=== PATIENT | female | born 1980 | race Caucasian/White ===

== ENCOUNTER 2017-05-07 20:05 | Emergency (ER) | payer MEDICAID ==
--- NOTE | 2017-05-07 20:34 | ED Physician Chart ---
ED Chief Complaint/HPI - Patient Information Date Seen:: 05/07/17 Time Seen:: 20:25 Chief Complaint:: right leg pain and redness History of Present Illness:: Onset 2 days ago of pain and redness of the right knee which is now extended to her ankle. She denies trauma. No chills or fever. The right knee is especially painful. Allergies:: Allergies Allergy/AdvReac Type Severity Reaction Status Date / Time No Known Allergies Allergy Verified 05/07/17 20:07 Vitals:: Vital Signs - 8 hr 05/07/17 20:05 Temp 98.1 F HR 110 RR 18 BP 144/120 O2 Sat % 99 Historian:: Patient Review:: Nurse's Note Reviewed ED Review of Systems - Review of Systems General/Constitutional: No fever, No chills Skin: Skin lesions Head: No headache Eyes: No loss of vision, No diplopia ENT: No earache, No sore throat Neck: No neck pain, No swelling Cardio Vascular: No chest pain, No palpitations Pulmonary: No SOB GI: No nausea, No vomiting, No diarrhea G/U: No dysuria Musculoskeletal: No bone or joint pain, No muscle pain Psychiatric: No prior psych history, No depression Hematopoietic: No bruising Allergic/Immuno: No urticaria Neurological: No syncope ED Past Medical History - Past Medical History Past Medical History: No significant medical hx, Dyslipidemia () Family History: Heart disease, Diabetes Melitus Social History: Non Smoker, No Alcohol Surgical History: other () Psychiatricy History: None Medication: None Family Medical History - Family Member Father History Unknown: Yes Living Status: Still Living Hx Family Hypertension: Yes ED Physical Exam - Physical Examination General/Constitutional: Well-developed, well-nourished, Alert, No distress Head: Atraumatic Eyes: Lids, conjuctiva normal, PERRL Other Skin comments:: Redness anterior and lateral right knee and right lower leg; 90 of flexion right knee ENMT: External ears, nose nl, Oropharynx nl Neck: No nuchal rigidity Respiratory: Nl effort/Exclusion Cardio Vascular: RRR GI: No tenderness/rebounding/guarding : No CVA tenderness Extremities: No tenderness or effusion Neuro/Psych: Alert/oriented Misc: Normal back, No paraspinal tenderness ED Septic Shock - . Is Septic Shock (SBP<90, OR Lactate>4 mmol\L) present?: No - <6hrs of presentation: Vital Signs: Vital Signs - 8 hr 05/07/17 20:05 Temp 98.1 F HR 110 RR 18 BP 144/120 O2 Sat % 99 ED Reassessment (Disposition) - Reassessment Reassessment:: Patient has rapidly expanding cellulitis anterior and lateral right lower leg. Will try outpatient antibiotic treatment initially. Instructed the patient to keep right leg elevated as much as possible and if redness and swelling are not improved by tomorrow morning she should return immediately to the emergency department for hospitalization and intravenous antibiotics. Reassessment Condition:: Unchanged - Diagnosis Diagnosis:: Cellulitis right knee and right lower leg - Aftercare/Follow up Instructions Aftercare/Follow-Up Instructions:: Refer to Discharge Instructions Medication Prescribed:: Prescriptions for Keflex 500 mg 4 times a day for 10 days and Bactrim DS 1 twice a day for 10 days given. - Patient Disposition Discharge/Transfer:: Home Condition at Disposition:: Stable, Unchanged
[2017-05-07] MEDS ORDERED: Sulfamethoxazole/TMP 800/160mg Tab PO ONE (20:35)
[2017-05-07] MEDS ORDERED: Sulfamethoxazole/TMP 800/160mg Tab ONE (20:39)
== END 2017-05-07 21:00 | disposition home or self-care (01) ==
LOC: ER 20:05
DX: L03.115 Cellulitis of right lower limb (principal)
CPT/HCPCS: 82948-90; Z7502; Z7610